=== PATIENT | female | born 1995 | race Caucasian/White ===

== ENCOUNTER 2025-08-26 09:06 | Emergency (ER) | payer OTHER, SELFPAY ==
--- OUTSIDE RECORDS SUMMARY | 2025-08-26 09:07 | XMS_ITS | Clinical Summary ---
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 30 tablet 5 06/04/2020 Active Active Problems Problem Noted Date Diagnosed Date Hypermetropia 05/18/2015 Dysmenorrhea 02/23/2014 Immunizations Immunization Administration Dates Next Due DTaP 07/21/2001 DTaP-HIB (TriHIBIT) 01/26/1998, 7,01/20/1997,11/18 Hepatitis A (Peds) 02/23/2014,11/06/2009 Hepatitis B (Peds) 08/02/1997,01/20/1997, 997 Inactivated Polio Vaccine 07/20/2001 MENINGOCOCCAL VACCINE 2 VIAL [id number] (MENVEO) 02/23/2014 MMR 07/21/2001,01/26/1998 Oral Polio Vaccine 04/28/1997,01/20/1997, 997 Tdap 05/17/2008 Varicella Vaccine 11/06/2009,01/26/1998 Family History Medical History Relation Name Comments Good Health Father Other Mother migraine Good Health Sister 3 Good Health Sister 4 Relation Name Status Comments Father Alive Mother Alive Sister 1 Alive Sister 2 Alive Sister 3 Sister 4 Social History Tobacco Use Types Packs/Day Years Used Date Smoking Tobacco: Never Smokeless Tobacco: Never Tobacco Cessation:Counseling Given: Yes Comments:No smoke in her environment. 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 Gender Identity Not on file Sexual Orientation Not on file Obstetrics History Para Term AB IAB SAB Ectopic Multiple Livin g Live Births 0 0 0 0 0 0 0 0 0 0 0 Last Filed Vital Signs Vital Sign Reading Time Taken Comments Blood Pressure 112/64 07/12/2020 9:05 AM CDT Pulse 65 07/12/2020 9:05 AM CDT Temperature 36.7 C (98 F) 07/12/2020 9:05 AM CDT Respiratory Rate 18 07/12/2020 9:05 AM CDT Oxygen Saturation 98% 07/12/2020 9:05 AM CDT Inhaled Oxygen Concentration - - Weight 60.8 kg (134 lb) 07/12/2020 9:03 AM CDT Height 162.6 cm (5' 4) 07/12/2020 9:03 AM CDT Body Mass Index 23 07/12/2020 9:03 AM CDT Plan of Treatment Upcoming Encounters Date Type Department Care Team (Late st Contact Info) Description 08/28/2025 9:10 AM CDT Office Visit [facility] [address] [place] [address] [place] [address] [place] [address] Health Maintenance Due Date Last Done Comments Depression screening for age 12+ 2008 HIV for age 15-65 2011 Hepatitis C screening for ag e 18-79 2014 Pap test for age 21-65 2017 Tetanus booster 05/17/2018 05/17/2008 BMI (ht and wt on same day) for age 18+ 06/04/2021 06/04/2020 HPV series for age 9-45 (1 - 3-dose SCDM series) 2023 COVID-19 vaccine series ( season) 2025 Influenza Vaccine (#1) 2025 RSV vaccine for adults or (1 - 1-dose 75+ series) 2071 Hepatitis B series for 19+ Completed 08/02, 01/20/1997, 1996 Pneumococcal series for age 6-49 Aged Out No longer eligible b ased on patient's age to complete this topic Care Teams Platen Press Operator Relationship Specialty Start Date End Date Bryon Rosas MD [address] [place] [address] PCP - General 08/17/06 Mya Gaytan NP [address] [place] [address] Rheumatology 01/14/12
[2025-08-26 09:23] VITALS: BP 119/84; PULSE 108; RESP 18; TEMP 37.6; O2SAT 97; BMI 23.8
--- NOTE | 2025-08-26 10:59 | ED.GENADULT ---
HPI - General Adult General Chief complaint: Psychiatric Problem/Disorder Stated complaint: mental health Time Seen by Provider: 08/26/25 10:01 History of Present Illness HPI narrative: Patient is a 29 year white female has had lifelong anxiety issues. She was on escitalopram in the past and was doing fairly well with that in terms of her mental health. She did have a few side effects. 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 The patient at this point feels like she has had some running thoughts, more sadness, more anxiety. She has not slept for a couple of days. She has had no fever, chills, illness. The patient has no abdominal pain no headache neck pain or other injuries. She had some psychosocial issues last night and felt like it was worsened presents to ER today. She felt a little bit better on the escitalopram and she did do some counseling in December of this year, but that ran its course. She lives in [place]. She has not had any auditory or visual hallucinations, today she denies suicidal suicidality or homicidal ideation. Patient has generally been healthy. Related Data Previous Rx's ?Medication ?Instructions ?Recorded escitalopram oxalate 10 mg tablet 10 mg PO DAILY #20 tabs 08/26/25 lorazepam 1 mg tablet (Ativan) 1 mg PO DAILY PRN #14 tabs 08/26/25 Allergies Allergy/AdvReac Type Severity Reaction Status Date / Time No Known Drug Allergies Allergy Verified 08/26/25 09:46 Review of Systems Status of ROS: Reports: 6 or more systems reviewed and unremarkable except as noted in History and below Exam Narrative: Exam Narrative: Objective: Patient has got a low-grade temp vital signs otherwise unremarkable alert orient x3, shows good insight into her situation Neck is supple She moves all extremities ambulates normally Mental status: The patient shows insight into her situation, denies suicidality, would like to get back on her medications and some help for acute anxiety. At this point she is interested in talking to someone about her situation. She can make a primary care visit appointment at some point the near future. Const: Vital Signs, click to edit/add: Vital Signs - 24 hr 08/26/25 09:23 Temperature 99.7 F H Pulse Rate [Right Pulse Oximeter] 108 H Respiratory Rate 18 Blood Pressure [Ri ght Upper Arm] 119/84 Pulse Oximetry 97 Oxygen Delivery Me thod Room Air Course Vital Signs Vital signs: Initial Vital Signs Temperature 99.7 F H 08/26/25 09:23 Temperature Source Temporal Artery Scan 08/26/25 09:23 Pulse Rate 108 H 08/26/25 09:23 Respiratory Rate 18 08/26/25 09:23 Blood Pressure 119/84 08/26/25 09:23 Blood Pressure Mean 95 08/26/25 09:23 Blood Pressure Position Sitting 08/26/25 09:23 Pulse Oximetry 97 08/26/25 09:23 Oxygen Delivery Method Room Air 08/26/25 09:23 Vital Signs Temperature 99.7 F H 08/26/25 09:23 Pulse Rate 108 H 08/26/25 09:23 Respiratory Rate 18 08/26/25 09:23 Blood Pressure 119/84 08/26/25 09:23 Pulse Oximetry 97 08/26/25 09:23 Oxygen Delivery Method Room Air 08/26/25 09:23 Temperature 99.7 F H 08/26/25 09:23 Pulse Rate 108 H 08/26/25 09:23 Respiratory Rate 18 08/26/25 09:23 Blood Pressure 119/84 08/26/25 09:23 Pulse Oximetry 97 08/26/25 09:23 Oxygen Delivery Method Room Air 08/26/25 09:23 Medical Decision Making MDM Narrative Medical decision making narrative: [age] year white female with anxiety and depression, offer medication. Patient has been a couple weeks without her escitalopram. I think it be reasonable to refill that she was on 11.1 mg daily but I think what I would give her as 10 mg which is a standard dose to take daily for a couple of weeks, would recommend she see her regular doctor within the next 2-3 days. Also give her some prescription for Ativan to take 1 mg q.h.s. as needed for sleep cautioned about sedative effect. Will give her a few of these. I think she does need to get some sleep based on her history, will have her see the [facility] mental health professional as well. Follow their recommendations. No concern for illicit drug use Tylenol or aspirin or overdose situation at this time. Addendum Travis 3:00 p.m. the patient met with the telehealth social service provider through [employer]; at this time there was no concern for suicidality, recommended therapy and refill on medications. I will do that as well as give her some Ativan to help her sleep. Recommend off work for a couple of days and recheck with primary care in 2 days as well. Discharge Plan Discharge Clinical Impression: Depression, Acute anxiety Patient Disposition: Home w/ Parent or Adult Condition: Stable Additional Instructions: Follow-up per tele health social Service recommendation, recommend she see her regular doctor next 2-3 days, all refill your escitalopram and some Ativan to help you sleep for the next few days. Light activity, adequate fluid intake, couple days at home would be reasonable. Recheck with her doctor as described above, return to ED sooner problems or concerns. Start your dose of escitalopram tomorrow, is here given a dose in the ER today. You can use Ativan tonight to help you sleep. Activity Level: Light activity Discharge Diet: Regular Prescriptions: New escitalopram oxalate 10 mg tablet 10 mg PO DAILY Qty: 20 2RF lorazepam [Ativan] 1 mg tablet 1 mg PO DAILY PRNQty: 14 0RF Rx Instructions: take at bedtime for anxiety/sleep Follow Up/Referrals: Bryon Rosas MD [Primary Care Provider, Family Practice] Stand Alone Forms: [employer] Info Instructions
[2025-08-26] MEDS: ESCITALOPRAM 10 MG TABLET PO (11:15)
== END 2025-08-26 11:20 | disposition home or self-care (01) ==
PROVIDERS: Emergency Provider Family Medicine; PCP Family Medicine
DX: F41.8 Other specified anxiety disorders (principal)
CPT/HCPCS: 99283; 99284; A9270